=== PATIENT | female | born 1970 | race Caucasian/White ===

== ENCOUNTER 2016-09-02 05:21 | Day surgery (SDC) | payer BC ==
[2016-08-30 17:16] VITALS: BMI 27.2
[2016-09-02] MEDS ORDERED: IBUPROFEN 800 MG/8 ML IJ IVPB PRN (05:43)
--- NOTE | 2016-09-02 05:43 | HP ---
History & Physical Update - History History: No Change - Physical Physical: No Change - Assessment Assessment: No Change - Plan Plan: No Change
[2016-09-02] MEDS ORDERED: BUPIVACAINE HCL/PF 0.5% (5MG/ML) 10 ML VIAL ONE (07:38)
[2016-09-02] MEDS ORDERED: PROPOFOL 20 ML ONE (07:49)
[2016-09-02] MEDS ORDERED: ROCURONIUM BROMIDE 50 MG/5 ML VIAL ONE (07:49)
[2016-09-02] MEDS ORDERED: MIDAZOLAM HCL 2 MG/2 ML SINGLE DOSE VIAL ONE (07:49)
[2016-09-02] MEDS ORDERED: CLINDAMYCIN 600 MG PREMIX BAG IVPB ONE (08:15)
[2016-09-02] MEDS ORDERED: LIDOCAINE HCL/PF 2% SDV 5ML VIAL ONE (08:22)
[2016-09-02] MEDS ORDERED: CLINDAMYCIN PHOSPHATE 600 MG/4 ML VIAL ONE (08:22)
[2016-09-02] MEDS ORDERED: DEXAMETHASONE SOD PHOSPHATE 4 MG/1 ML VIAL ONE (09:11)
[2016-09-02] MEDS ORDERED: GLYCOPYRROLATE 0.2 MG/1 ML VIAL ONE (09:11)
[2016-09-02] MEDS ORDERED: KETOROLAC TROMETHAMINE 30 MG/1 ML VIAL ONE (09:11)
[2016-09-02] MEDS ORDERED: NEOSTIGMINE METHYLSULFATE 0.5 MG/ML - 10 ML MDV ONE (09:13)
[2016-09-02] MEDS ORDERED: ONDANSETRON 4 MG/2 ML VIAL IVPUSH PRN (09:36)
[2016-09-02] MEDS ORDERED: PROMETHAZINE HCL 25 MG/1 ML VIAL IVPUSH PRN (09:36)
[2016-09-02] MEDS ORDERED: oxyCODONE HCL 5 MG TABLET PO PRN (09:36)
[2016-09-02] MEDS ORDERED: LACTATED RINGERS SOLUTION 1,000 ML IV SCH (09:45)
[2016-09-02 11:40] VITALS: TEMP 97.9
--- NOTE | 2016-09-02 13:12 | OP ---
Operative Note - Note: Operative Date: 09/02/16 Operation: Right robotic Laparoscopic ovarian cystectomy. Left robotic laparoscopic ovarian cystectomy Findings: 7 cm ovarian right cyst 3 cm ovarian left cyst 3 cm paraovarian left cyst Post-Operative Diagnosis: Same as Pre-op Surgeon: Josee Bee Rough Rice Tender: Tiffanie Chappell Anesthesia: General Estimated Blood Loss (mls): 30 Operative Report Dictated: Yes
[2016-09-02 14:52] VITALS: BP 100/68; PULSE 66
--- NOTE | 2016-09-03 15:35 | PATH ---
Surgical Pathology Report Patient Name: MEGAN LAWSON [facility]. Rec. #: [id number] /Age/Gender: 1970 (Age: 45) / F Account: [id number] Location: [facility] Taken: 09/02/2016 Received: 09/02/2016 Reported: 09/03/2016 Physicians: Josee Bee M.D. Specimen(s) Received A: RIGHT OVARIAN CYST B: LEFT PARATUBAL C: LEFT CYST #1 D: RIGHT CYST #2 Clinical History Ovarian cyst, pelvic pain Final Diagnosis A. 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 B. PARATUBAL CYST, LEFT, CYSTECTOMY: BENIGN CYST WITH SEROUS LINING WITH FEATURES SUGGESTIVE OF PARATUBAL CYST. C. OVARY, LEFT, CYST #1, CYSTECTOMY: CORPUS LUTEUM CYST WITH HEMORRHAGE. D. OVARY, LEFT, CYST #2, CYSTECTOMY: SMALL FIBROTHECOMA AND BENIGN SEROUS CYST. Electronically Signed Benito Ramey M.D. Gross Description A. Received in formalin labeled "right ovarian cyst" is a 6.0 x 3.5 x 1.5 cm disrupted cyst. The outer surface is arevalo-pink and smooth. There is no fluid present within the lumen. No excrescences are identified. P[employer] sections are submitted in 5 cassettes. B. Received in formalin labeled "left paratubal" is a 1.1 x 0.5 x 0.2 cm arevalo, irregular portion of soft tissue, consistent with a disrupted cyst. The specimen is submitted in toto in one cassette. C. Received in formalin labeled "left cyst #1" are 4 yellow/orange soft tissue fragments ranging from 0.2-1.6 cm in greatest dimension, possibly consistent with portions of a disrupted cyst. The specimens are submitted in toto in one cassette. D. Received in formalin labeled "left cyst #2" is a 1.5 x 1.0 x 0.4 cm arevalo, focally disrupted cyst. The specimen is sectioned and entirely submitted in one cassette. DL/09/02/2016 saudi/09/02/2016
== END 2016-09-02 14:15 | disposition home or self-care (01) ==
LOC: JASU-SURG 05:21
PROVIDERS: ATTEND Obstetrics & Gynecology
PROC: 0UB24ZZ Excision of Bilateral Ovaries, Percutaneous Endoscopic Approach (ICD-10-PCS; principal; 2016-09-02 08:00)
DX: N83.202 Unspecified ovarian cyst, left side (principal); N83.201 Unspecified ovarian cyst, right side
CPT/HCPCS: 58662; S2900; 88305-TC; 88307-TC; 94760